=== PATIENT | male | born 1965 | race African-American/Black ===

== ENCOUNTER 2018-09-19 19:05 | Emergency (ER) | payer BC ==
[~2018-09-19] VITALS: Ht 180.3 cm; Wt 99.8 kg
[2018-09-19 21:51] LABS: ABSOLUTE NEUTROPHILS 3.5 thou/uL (1.4-8.2); EOSINOPHILS 2.2 % (0.0-3.0); HEMATOCRIT 40.3 % (42.0-52.0); HEMOGLOBIN 13.7 gm/dL (14.0-18.0); LYMPHOCYTES 43.4 % (24.0-44.0); MCV 85.3 fL (80.0-100.0); MONOCYTES 7.3 % (1.0-8.0); PLATELET COUNT 217 thou/uL (150-400); POLYS 46.1 % (36.0-66.0); RBC 4.72 mil/uL (4.50-6.00); RDW 14.3 % (10.5-14.5); WBC 7.7 thou/uL (4.0-11.0)
[2018-09-19 21:58] LABS: ANION GAP 6 mmol/L (7-16); BUN 16 mg/dL (7-18); CALCIUM 9.3 mg/dL (8.5-10.1); CHLORIDE 106 mmol/L (98-107); CO2 28 mmol/L (21-32); GLUCOSE 190 mg/dL (74-106); POTASSIUM 4.1 mmol/L (3.5-5.1); SODIUM 140 mmol/L (136-145)
[2018-09-19 22:08] LABS: ALBUMIN 3.4 g/dL (3.4-5.0); SGOT 12 U/L (15-37); SGPT 17 U/L (30-65); TOTAL BILIRUBIN 0.3 mg/dL (<0.1-1.0); TOTAL PROTEIN 6.9 g/dL (6.4-8.2); TROPONIN-I <0.06 ng/mL (<0.06)
[2018-09-19] MEDS ORDERED: COLACE100 MG PO (22:19)
[2018-09-19 22:47] VITALS: BP 154/73
--- NOTE | 2018-09-21 17:58 | EKG ---
[facility] [place] [employer] [address] ELECTROCARDIOGRAM REPORT Name: EMMETT PAGE JR Room #: DEP Yuniel#: [id number] Admission: 09/19/18 Attend Phys: Discharge: 09/19/18 Date of : 65 Report #: [id number] THIS REPORT FOR: //name// [facility] ED Test Date: 2018-09-19 Test Time: 21:32:44 Pat Name: EMMETT PAGE Department: Room: Gender: Owner Manager: JUNIOR : 1965 Requested By: Kemal Moore Order Number: [id number] MD: Jose G Shane Measurements Intervals [place] Rate: 82 P: 59 MT: 162 QRS: -3 QRSD: 78 T: 11 QT: 333 QTc: 389 Interpretive Statements Sinus rhythm ST elev, probable normal early repol pattern Poor R wave progression Compared to ECG 07/24/2005 23:37:45 No significant change was found Electronically Signed On 09-21-2018 17:57:46 CDT by Jose G Shane [email or web address] <ELECTRONICALLY SIGNED> By: Jose G Shane MD, [facility] 09/21/18 1757 31 31 Jose G Shane MD, [facility] /EPI
== END 2018-09-19 22:49 | disposition home or self-care (01) ==
LOC: ER 19:05
PROVIDERS: Nurse Practitioner
DX: K59.00 Constipation, unspecified (principal); E78.5 Hyperlipidemia, unspecified; E11.9 Type 2 diabetes mellitus without complications